=== PATIENT | male | born 1970 | race Hispanic/Latino ===

== ENCOUNTER 2023-10-20 12:25 | Emergency (ER) | payer BC ==
[2023-10-20] MEDS ORDERED: Acetaminophen 325 MG TAB ONE (14:59)
== END 2023-10-20 18:05 | disposition home or self-care (01) ==
LOC: ERS 12:25
DX: N43.3 Hydrocele, unspecified (principal); Z55.6 Problems related to health literacy
CPT/HCPCS: 76870; 93976